=== PATIENT | female | born 1985 | race Two or more races ===

== ENCOUNTER 2024-07-22 10:41 | Inpatient (IN) ==
[2024-07-22] MEDS ORDERED: OXYTOCIN 30 UNITS/NSS 30 UNITS/500 ML BAG IV PRN (11:04)
[2024-07-22] MEDS ORDERED: LIDOCAINE 1% LOCAL 20 ML VIAL INFIL PRN (11:04)
[2024-07-22] MEDS ORDERED: CALCIUM CARBONATE 500 MG CHEWABLE TAB PO PRN (11:04)
[2024-07-22 11:40] LABS: Hematocrit (blood only) 33.4 % (37.0-47.0); Hemoglobin 11.4 g/dl (12.0-16.0); Mean Corpuscular Hemoglobin 28.9 pg (25.0-34.0); Mean Corpuscular Hgb Conc 34.1 g/dL (32.0-36.0); Mean Corpuscular Volume 84.8 fL (80.0-100.0); Platelet Count 282 K/uL (130-400); RDW Coefficient of Variation 14.4 % (11.5-14.5); RDW Standard Deviation 44.8 fL (36.4-46.3); Red Blood Count 3.94 M/uL (4.20-5.40); White Blood Count 8.15 K/ul (4.8-10.8)
[2024-07-22] MEDS: LACTATED RINGER'S 1,000 ML IV PRN (11:44)
--- NOTE | 2024-07-22 11:46 | History & Physical Report ---
Date of Service July 22, 2024 Assessment & Plan (1) 38 weeks gestation of : (2) Encounter for induction of labor: (3) GBS carrier: (4) Chronic hypertension affecting : (5) Polyhydramnios: (6) Need for MMR vaccine: (7) Gestational diabetes: Plan PCN before IOL with pit/AROM, pt agreeable VSS, Rh+, needing MMR, FHT category 1 Admission and Anticipated Discharge Date Admission Date: July 22, 2024 History of Present Illness Primary Care Provider: DO Carol Rueda is a 38 y/o female currently at 38w 1d with an DAVION 08/04/24 as determined by US who is here for induction of labor for CHTN in . This was complicated by GDM, maternal HTN, maternal tobacco smoking, and polyhydramnios. Patient is also GBS carrier. She has had regular appointments with OB. No rom, few ctx, no vb. +FM Blood type: A+ Antibody screen: NEG Hgb: 11.4 (today) Hct: 33.4 (today) WBC: 8.15 (today) Plt: 282 (today) Glucose 1 Hour (50 g Load): 160 mg/dl (05/13/24) GBS: Rubella: equivocal; need for MMR VDRL/RPR: Non-reactive Gonorrhea: Not detected Chalmydia: Not detected HIV: Non-reactive HbSAg: Non-reactive Allergies Allergy/AdvReac Type Severity Reaction Status Date / Time Sulfa (Sulfonamide Allergy Intermediate Swollen Verified 07/21/24 11:14 Antibiotics) eyes from eye drop Home Medications Medication Instructions Recorded Confirmed Type albuterol sulfate 90 mcg/actuation 2 puff inhalation Q4H PRN 08/23/19 07/21/24 History aerosol inhaler (ProAir HFA) Shortness Of Breath Or Wheezing acetaminophen 500 mg tablet 1,000 mg PO Q8H PRN Pain 03/05/20 07/21/24 History (Tylenol Extra Strength) sumatriptan succinate 100 mg tablet 100 mg PO DIRECTED PRN Migraine 01/10/21 07/21/24 History Headache omeprazole 40 mg capsule,delayed 40 mg PO QAM 06/25/23 07/21/24 History release labetalol PO 12/10/23 07/21/24 History buspirone 10 mg tablet 10 mg PO DAILY 02/11/24 07/21/24 History escitalopram oxalate 10 mg tablet 10 mg PO DAILY 02/11/24 07/21/24 History trazodone 50 mg tablet 50 mg PO DAILY PRN 02/11/24 07/21/24 History acetone (urine) test (Ketone Urine #50 ea 07/01/24 07/21/24 Rx Test strips) blood sugar diagnostic (OneTouch #150 ea 07/01/24 07/21/24 Rx Verio test strips) blood-glucose meter (OneTouch #1 ea 07/01/24 07/21/24 Rx Verio Reflect Meter) lancets 33 gauge (OneTouch Delica #150 ea 07/01/24 07/21/24 Rx Plus Lancet) Past Med/Surg History Problem List Encounter for induction of labor 38 weeks gestation of Gestational diabetes Polyhydramnios GBS carrier Need for MMR vaccine Seizure disorder Tobacco smoking affecting Chronic hypertension affecting Elderly multigravida Medical History Varicella vaccination History of chicken pox Migraine Seizures Asthma Surgical History S/P tonsillectomy Family History Grandmother (Paternal) Ovarian cancer Grandfather (Paternal) Colorectal cancer Denies family history of Breast cancer Social History Smoking Status: Former smoker Tobacco Type: Cigarettes Second Hand Exposure: No; Do You Dip or Chew Tobacco: No; Hx Alcohol Use: No Hx Substance Use: No Preferred Language: Uzbek Communication Ability: Effective 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 Beliefs That Will Affect Care: None marital status: Single marital status details: lv Ty(35) Current Living Situation: Family and Significant Other Current Living Situation Comment: living with boyfriend and their three children current occupational status: employed current occupation: [employer] at [employer] Other Information That Helps Us Care for You: No Feels Safe at Home: Yes Safety Concerns: Afraid for Self, Afraid for Child/Children and Afraid for Others in Home Assistive Devices: None Review of Systems 2 Constitutional: as per Subjective / HPI Physical Exam 2 Physical Exam: General: Alert and oriented. No acute distress CV: Regular rate and rhythm. No murmurs. Respiratory: CTA bilaterally. No rhonchi, wheezes, or crackles. No increased work of breathing. Abdomen: Gravid: Soft, nontender upon palpation Pelvic: Dilated 2 cm; Effacement 50%; Station -[address] Eason Lower extremities: NO LE edema. No deep calf pain. Results & Data Results & Data Vital Signs (Past 12 Hours) Vital Signs Temp Pulse Pulse Resp BP BP Pulse Ox 07/22/24 11:11 37.0 C 66 16 129/81 98 07/22/24 11:10 66 129/81 O2 Del Method 07/22/24 11:11 Room Air 07/22/24 11:10 Laboratory Results 07/22/24 11:12 07/22/24 11:12 Supervising Physician Co-Signing Physician Notes Resident Physician Supervision Note: I was present with Dr. Dover during the history and exam. I discussed the case with the resident and agree with the findings and plan as documented in the note. Any exceptions or clarifications are listed here: 38yo t 38+wks emmy presents to LD for planned induction for CHTN. also complicated by GDM, AMA, Poly, smoker. She notes some ctx overnight. No rom, no vb. +FM. Abd soft gravid nt, efw 7-8# NST reactive. fhts categ 1. SVE yest as noted. Admit, labs, iv, start pit and pcn and arom when appropriate. bsgs in labor. bp as noted. Documented By: Maris Eason MD, FACOG Resident Activity Tracking Resident Involvement: Resident Care Provided Care Provided: OB Delivery
[2024-07-22] MEDS: OXYTOCIN 30 UNITS/NSS 30 UNITS/500 ML BAG IV PRN (11:51)
[2024-07-22 11:54] LABS: Albumin Globulin Ratio 1.3 (0.9-2); Albumin Level 3.4 gm/dl (3.4-5.0); Bilirubin Direct 0.1 mg/dl (0-0.2); Bilirubin,Total 0.5 mg/dl (0.2-1.0); Calcium 8.4 mg/dl (8.6-10.3); Est GFR (African American) 144.3 ml/min; Est GFR (Non-African American) 124.5 ml/min; Globulin 2.7 gm/dl (2.5-4.0); Potassium 3.9 mmol/L (3.5-5.1); Total Protein 6.1 gm/dl (6.0-8.3)
[2024-07-22] MEDS: PENICILLIN GK 6 MU in DEXTROSE 5% 250 ML IV STA (12:15)
[2024-07-22] MEDS: PENICILLIN GK 3 MU in DEXTROSE 5% 100 ML IV PRN (16:43)
[2024-07-22] MEDS ORDERED: fentaNYL citrate PF 100 MCG/2 ML VIAL EPI PRN (18:12)
[2024-07-22] MEDS ORDERED: fentANYL 2 MCG/ML BUPIVacaine 0.125%-NSS 100ML BAG EPI PRN (18:12)
[2024-07-22] MEDS ORDERED: NALBUPHINE HCL 5 MG in SYRINGE 0 ML IV PRN (18:12)
[2024-07-22] MEDS ORDERED: NALOXONE HCL 1 MG in SODIUM CHLORIDE 0.9% 1,000 ML IV PRN (18:12)
[2024-07-22] MEDS ORDERED: NALOXONE HCL 0.4 MG/1 ML VIAL/CARP IV PRN (18:12)
[2024-07-22] MEDS ORDERED: LIDOCAINE 2% MPF LOCAL 5 ML VIAL EPI PRN (18:12)
[2024-07-22] MEDS ORDERED: ePHEDrine sulfate 50 MG/ML AMP IV PRN (18:12)
[2024-07-22] MEDS ORDERED: BUPIVACAINE 0.25% PF 30 ML VIAL EPI PRN (18:12)
[2024-07-22] MEDS ORDERED: diphenhydrAMINE 50 MG/ML VIAL IV PRN (18:12)
[2024-07-22] MEDS ORDERED: ROPIVACAINE 0.5% PF 5 MG/ML 20 ML VIAL EPI PRN (18:12)
[2024-07-22] MEDS ORDERED: SODIUM CHLORIDE 0.9% PF INJ 10 ML VIAL EPI PRN (18:12)
--- NOTE | 2024-07-22 18:12 | Anesthesiology Consultation ---
Date of Service July 22, 2024 Assessment & Plan Chart Review Chart Review: Patient NOT seen in Pre Admission Testing and Acceptable Risk for Labor Epidural Consults Requested none History Height/Weight Height: 5 ft 3 in Weight: 91.444 kg Allergies Allergy/AdvReac Type Severity Reaction Status Date / Time Sulfa (Sulfonamide Allergy Intermediate Swollen Verified 07/21/24 11:14 Antibiotics) eyes from eye drop Medications Home Medications Medication Instructions Recorded Confirmed Last Taken albuterol sulfate 90 mcg/actuation 2 puff inhalation Q4H PRN 08/23/19 07/22/24 Unknown aerosol inhaler (ProAir HFA) Shortness Of Breath Or Wheezing acetaminophen 500 mg tablet 1,000 mg PO Q8H PRN Pain 03/05/20 07/22/24 03/05/20 19:00 (Tylenol Extra Strength) 1,000 mg sumatriptan succinate 100 mg tablet 100 mg PO DIRECTED PRN Migraine 01/10/21 07/22/24 Unknown Headache omeprazole 40 mg capsule,delayed 40 mg PO QAM PRN Anxiety 06/25/23 07/22/24 06/25/23 release labetalol 300 mg PO 2XD 12/10/23 07/22/24 07/22/24 buspirone 10 mg tablet 10 mg PO DAILY 02/11/24 07/22/24 07/21/24 escitalopram oxalate 10 mg tablet 10 mg PO DAILY 02/11/24 07/22/24 07/22/24 trazodone 50 mg tablet 50 mg PO DAILY PRN sleep 02/11/24 07/22/24 07/21/24 acetone (urine) test (Ketone Urine #50 ea 07/01/24 07/21/24 Unknown Test strips) blood sugar diagnostic (OneTouch #150 ea 07/01/24 07/21/24 Unknown Verio test strips) blood-glucose meter (OneTouch #1 ea 07/01/24 07/21/24 Unknown Verio Reflect Meter) lancets 33 gauge (OneTouch Delica #150 ea 07/01/24 07/21/24 Unknown Plus Lancet) Active Medications Generic Name Dose Route Start Last Admin Trade Name Freq PRN Reason Stop Dose Admin Oxytocin 30 units in 500 mls @ 7 mls/hr 07/22/24 11:04 07/22/24 14:00 Pitocin 30 Units/Nss IV 07/24/24 11:03 0.42 units/hr .Q24H PRN 7 mls/hr Labor Induction/Augmentation Titration Protocol 0.42 UNITS/HR Lactated Ringer's 1,000 mls @ 125 mls/hr 07/22/24 11:04 07/22/24 11:44 Lr IV 07/24/24 11:03 125 mls/hr .Q8H PRN Administration L&D Protocol Protocol Penicillin G Potassium 3 mu/ 106 mls @ 100 mls/hr 07/22/24 14:04 07/22/24 16:43 Dextrose IV 08/01/24 14:03 100 mls/hr Q4H PRN Administration GBS(+) Until Delivery Past Medical History Medical History Varicella vaccination History of chicken pox Migraine Seizures Asthma Past Family History Family History Grandmother (Paternal) Ovarian cancer Grandfather (Paternal) Colorectal cancer Denies family history of Breast cancer Past Surgical History Surgical History S/P tonsillectomy Social History Smoking Status: Former smoker Do You Dip or Chew Tobacco: No Hx Alcohol Use: No Hx Substance Use: No substance use type: does not use Physical Exam Vital Signs Last Vital Signs Temp 98.8 F 07/22/24 14:01 Pulse 55 L 07/22/24 17:55 Resp 16 07/22/24 11:14 BP 162/90 H 07/22/24 17:55 Pulse Ox 98 07/22/24 11:11 O2 Del Method Room Air 07/22/24 11:11 Testing Laboratory Results 07/22/24 11:12 07/22/24 11:12 Blood Type A Positive 07/22/24 11:12 Antibody Screen NEGATIVE 07/22/24 11:12 07/22/24 11:57 POC Glucose 122 H
[2024-07-22] MEDS: fentANYL 2 MCG/ML BUPIVacaine 0.125%-NSS 100ML BAG ONE (18:35)
[2024-07-22] MEDS: BUPIVACAINE 0.25% PF 30 ML VIAL ONE (18:35)
[2024-07-22] MEDS: LIDOCAINE 2%/EPINEPHRINE 1:200,000 20 ML PF ONE (18:35)
[2024-07-22] MEDS: fentaNYL citrate PF 100 MCG/2 ML VIAL EPI STA (18:54)
[2024-07-22] MEDS: LIDOCAINE 2%/EPINEPHRINE 1:200,000 20 ML PF EPI STA (18:54)
[2024-07-22] MEDS: SODIUM CHLORIDE 0.9% PF INJ 10 ML VIAL ONE (18:54)
[2024-07-22] MEDS: SODIUM CHLORIDE 0.9% PF INJ 10 ML VIAL EPI STA (18:54)
[2024-07-22] MEDS: BUPIVACAINE 0.25% PF 30 ML VIAL EPI STA (18:54)
[2024-07-22] MEDS: ePHEDrine sulfate 50 MG/ML AMP ONE (18:54)
--- NOTE | 2024-07-22 19:01 | Labor Progress Brief Note ---
Date of Service July 22, 2024 Subjective comfortable Assessment & Plan (1) 38 weeks gestation of : (2) Encounter for induction of labor: (3) GBS carrier: Plan will see how arom helps pattern, keep increasing pit to help labor pattern. fhts categ 1 Admission and Anticipated Discharge Date Admission Date: July 22, 2024 Physical Exam Constitutional: WD/WN, vitals as above Genitourinary: Manual OB Exam: + cervical dilation 3 cm, + cervical effacement 50%, + station -2 (anterior) and + amniotic fluid (AROM) clear OB Exam Monitor Tracing: + external FHT monitor used, + external uterine monitor used (q3), + category I and + normal FHT variability Results & Data Vital Signs (Past 12 Hours) Vital Signs Temp Pulse Pulse Resp BP BP Pulse Ox 07/22/24 18:56 51 L 100 07/22/24 18:54 59 L 144/88 H 07/22/24 18:51 71 100 07/22/24 18:50 16 07/22/24 18:50 16 07/22/24 18:49 70 142/88 H 07/22/24 18:46 76 98 07/22/24 18:45 16 07/22/24 18:45 16 07/22/24 18:44 59 L 144/82 H 07/22/24 18:41 66 99 07/22/24 18:40 59 L 147/92 H 07/22/24 18:37 60 143/86 H 07/22/24 18:36 57 L 99 07/22/24 18:32 54 L 160/97 H 07/22/24 18:31 61 100 07/22/24 18:27 62 185/86 H 07/22/24 18:26 68 100 07/22/24 18:22 07/22/24 18:21 60 100 07/22/24 18:00 16 07/22/24 18:00 98.6 F 16 07/22/24 17:55 55 L 162/90 H 07/22/24 16:57 53 L 156/91 H 07/22/24 14:54 56 L 137/93 07/22/24 14:01 98.8 F 07/22/24 13:57 62 157/95 H 07/22/24 13:26 57 L 156/89 H 07/22/24 12:55 67 129/86 07/22/24 11:53 71 121/79 07/22/24 11:14 98.6 F 66 16 128/81 07/22/24 11:11 98.6 F 66 16 129/81 98 07/22/24 11:10 66 129/81 Pulse Ox O2 Del Method O2 Del Method 07/22/24 18:56 07/22/24 18:54 07/22/24 18:51 07/22/24 18:50 07/22/24 18:50 07/22/24 18:49 07/22/24 18:46 07/22/24 18:45 07/22/24 18:45 07/22/24 18:44 07/22/24 18:41 07/22/24 18:40 07/22/24 18:37 07/22/24 18:36 07/22/24 18:32 07/22/24 18:31 07/22/24 18:27 07/22/24 18:26 07/22/24 18:22 100 Room Air 07/22/24 18:21 07/22/24 18:00 07/22/24 18:00 07/22/24 17:55 07/22/24 16:57 07/22/24 14:54 07/22/24 14:01 07/22/24 13:57 07/22/24 13:26 07/22/24 12:55 07/22/24 11:53 07/22/24 11:14 07/22/24 11:11 Room Air 07/22/24 11:10 Coding Level of Care Code None Diagnoses 38 weeks gestation of Z3A.38 Encounter for induction of labor Z34.90 GBS carrier Z22.330
--- NOTE | 2024-07-23 01:40 | Delivery Summary ---
Vaginal Delivery Summary Date of Service July 23, 2024 Vaginal Delivery Summary and 2nd Degree LAC The patient dilated to complete and pushed to deliver a viable female infant Apgars 8 and 8 via over 2nd degree perineal laceration. Mild shoulder dystocia encountered relieved by Adrian maneuvers, gentle downward traction and effective maternal expulsive efforts. Remaining shoulder and body delivered with ease. M/N bulb suctioned. Infant was vigorous and crying at . Cord clamped at 30 seconds of life and to maternal abdomen where the cord was then doubly clamped and cut. Placenta delivered spontaneously and intact, three-vessel cord. Hemostasis achieved with dilute pitocin and uterine massage and drainage of the bladder for approximately 150 cc under sterile conditions. Laceration repaired in routine fashion with 3-0 vicryl. Cervix and sulci intact. QBL 75 cc. Mother and baby stable in recovery. MNP Vaginal Delivery Charge Delivery Type Details: and 2nd Degree LAC
[2024-07-23] MEDS ORDERED: oxyCODONE/ACETAMINOPHEN 5mg/325mg TAB PO PRN (03:03)
[2024-07-23] MEDS ORDERED: HYDROCORTISONE ACETATE 25 MG SUPP PR PRN (03:03)
[2024-07-23] MEDS ORDERED: OXYTOCIN 30 UNITS/NSS 30 UNITS/500 ML BAG IV PRN (03:03)
[2024-07-23] MEDS ORDERED: ALBUTEROL HFA 8 GM INHALER INH PRN (03:03)
[2024-07-23] MEDS ORDERED: ACETAMINOPHEN 325 MG TAB PO PRN (03:03)
[2024-07-23] MEDS ORDERED: MEASLES, MUMPS & RUBELLA VIRUS VACCINE (MMR) 0.5ML VIAL SQ ONE (03:03)
[2024-07-23] MEDS: IBUPROFEN 600 MG TAB PO PRN (03:26)
[2024-07-23] MEDS: BENZOCAINE 20% SPRY 85 APPLN/85 GM CAN EXT PRN (03:26)
[2024-07-23] MEDS: OXYTOCIN 20 UNITS/LR 1,002 ML IV SCH (03:26)
[2024-07-23] MEDS: DIPHTHER/TETAN/PERTUS Vaccine (Tdap, Adol/Adult) 0.5mL IM ONE (03:26)
[2024-07-23] MEDS: LABETALOL HCL 300 MG TAB PO STA (04:09)
--- NOTE | 2024-07-23 06:29 | Obstetrical Progress Note ---
Date of Service July 24, 2024 Assessment & Plan (1) GBS carrier: (2) Tobacco smoking affecting : (3) Chronic hypertension affecting : (4) Polyhydramnios: (5) Elderly multigravida: (6) Need for MMR vaccine: (7) Gestational diabetes: Plan PPD1: Stable, continue routine care, continue OOB and ambulation, diet as tolerated Rh+, gbs carrier, need MMR Admission and Anticipated Discharge Date Admission Date: July 22, 2024 Naomi Medina is a 38yo who is PPD#1 following induced vaginal delivery at term. She reports her pain is well controlled w analgesics She is eating, drinking, ambulating, and urinating Having appropriate lochia Currently breast feeding. Review of Systems Constitutional: no fever, no chills and no sweats Respiratory: no dyspnea Cardiovascular: no chest pain, no palpitations and no calf pain Genitourinary: no dysuria Neurologic: no headache(s) Physical Exam Physical Exam: General: Alert, oriented. No acute distress. Cardiac: Regular rate and rhythm, no murmurs, rubs, or gallops. Respiratory: Clear to auscultation bilaterally, no wheezes/rales/rhonchi. No increased work of breathing. Symmetrical chest rise. No respiratory distress. Abdomen: Soft, nontender, nondistended. Bowel sounds present. Uterus: Uterine fundus firm, palpable at the level of the umbilicus. Lower extremities: No lower extremity edema or swelling. No deep calf pain. Results & Data Vital Signs (Past 12 Hours) Vital Signs Temp Pulse Pulse Resp BP BP Pulse Ox 07/23/24 04:48 36.5 C 70 16 146/84 H 07/23/24 03:55 76 130/76 07/23/24 03:40 83 141/87 H 07/23/24 03:31 71 159/95 H 07/23/24 03:25 85 160/100 H 07/23/24 03:12 67 152/93 H 07/23/24 03:10 80 148/96 H 07/23/24 02:55 73 144/84 H 07/23/24 02:40 71 148/86 H 07/23/24 02:25 67 147/88 H 07/23/24 02:10 72 144/84 H 07/23/24 01:55 79 152/88 H 07/23/24 01:41 82 157/87 H 07/23/24 01:36 74 99 07/23/24 01:31 75 98 07/23/24 01:26 78 97 07/23/24 01:21 84 98 07/23/24 01:16 88 99 07/23/24 01:11 81 100 07/23/24 01:10 77 137/78 07/23/24 01:06 72 98 07/23/24 01:01 79 98 07/23/24 00:57 70 139/68 07/23/24 00:56 73 98 07/23/24 00:51 76 99 07/23/24 00:46 76 98 07/23/24 00:41 37.2 C 73 18 99 07/23/24 00:40 74 126/73 07/23/24 00:36 72 98 07/23/24 00:31 72 99 07/23/24 00:26 80 99 07/23/24 00:25 70 123/66 07/23/24 00:21 73 99 07/23/24 00:16 76 100 07/23/24 00:11 88 160/77 H 98 07/23/24 00:06 70 99 07/23/24 00:01 70 98 07/22/24 23:57 59 L 160/84 H 07/22/24 23:56 59 L 96 07/22/24 23:51 76 99 07/22/24 23:46 72 96 07/22/24 23:41 70 96 07/22/24 23:40 66 136/77 07/22/24 23:36 75 96 07/22/24 23:31 74 96 07/22/24 23:26 71 97 07/22/24 23:25 68 140/79 07/22/24 23:21 72 97 07/22/24 23:16 74 99 07/22/24 23:11 99 07/22/24 23:11 69 07/22/24 23:11 67 134/76 07/22/24 23:06 71 100 07/22/24 23:01 76 98 07/22/24 22:56 61 99 07/22/24 22:55 61 144/81 H 07/22/24 22:51 63 99 07/22/24 22:46 64 99 07/22/24 22:41 72 99 07/22/24 22:40 76 141/83 H 07/22/24 22:36 72 99 07/22/24 22:31 72 99 07/22/24 22:26 62 99 07/22/24 22:25 66 137/79 07/22/24 22:21 71 99 07/22/24 22:16 72 100 07/22/24 22:11 69 99 07/22/24 22:10 65 137/86 07/22/24 22:06 71 100 07/22/24 22:01 70 100 07/22/24 21:56 71 100 07/22/24 21:55 68 150/84 H 07/22/24 21:51 68 100 07/22/24 21:46 72 100 07/22/24 21:41 63 100 07/22/24 21:40 66 154/86 H 07/22/24 21:36 59 L 100 07/22/24 21:31 64 99 07/22/24 21:26 78 99 07/22/24 21:25 63 130/67 07/22/24 21:21 71 100 07/22/24 21:16 66 100 07/22/24 21:11 80 132/61 100 07/22/24 21:06 69 100 07/22/24 21:01 70 100 07/22/24 20:56 100 07/22/24 20:56 69 07/22/24 20:56 66 129/71 07/22/24 20:51 74 100 07/22/24 20:50 18 07/22/24 20:50 37.2 C 18 07/22/24 20:46 68 100 07/22/24 20:41 72 100 07/22/24 20:40 66 126/67 07/22/24 20:36 72 100 07/22/24 20:31 68 100 07/22/24 20:26 65 129/65 100 07/22/24 20:21 68 99 07/22/24 20:16 62 99 07/22/24 20:11 64 98 07/22/24 20:10 75 133/79 07/22/24 20:06 61 99 07/22/24 20:01 62 99 07/22/24 19:56 75 100 07/22/24 19:55 56 L 147/90 H 07/22/24 19:51 62 100 07/22/24 19:46 60 100 07/22/24 19:41 59 L 100 07/22/24 19:40 62 141/90 H 07/22/24 19:39 66 91 07/22/24 19:36 59 L 100 07/22/24 19:31 63 100 07/22/24 19:26 100 07/22/24 19:26 66 07/22/24 19:26 56 L 152/83 H 07/22/24 19:21 59 L 99 07/22/24 19:16 62 100 07/22/24 19:11 59 L 99 07/22/24 19:09 37.0 C 64 18 148/90 H 91 07/22/24 19:06 62 100 07/22/24 19:05 59 L 150/80 H 07/22/24 19:01 100 07/22/24 19:01 58 L 07/22/24 19:01 58 L 149/93 H 07/22/24 18:56 51 L 100 07/22/24 18:54 59 L 144/88 H 07/22/24 18:51 71 100 07/22/24 18:50 16 07/22/24 18:50 16 07/22/24 18:49 70 142/88 H 07/22/24 18:46 76 98 07/22/24 18:45 16 07/22/24 18:45 16 07/22/24 18:44 59 L 144/82 H 07/22/24 18:41 66 99 07/22/24 18:40 59 L 147/92 H 07/22/24 18:37 60 143/86 H 07/22/24 18:36 57 L 99 07/22/24 18:32 54 L 160/97 H 07/22/24 18:31 61 100 07/22/24 18:27 62 185/86 H
[2024-07-23] MEDS: LABETALOL HCL 100 MG TAB PO SCH (08:28)
[2024-07-23] MEDS: PRENATAL VITAMIN 1 TAB PO SCH (08:28)
[2024-07-23] MEDS: DOCUSATE SODIUM 100 MG CAP PO SCH (08:28)
[2024-07-23] MEDS: ESCITALOPRAM OXALATE 10 MG TAB PO SCH (08:28)
[2024-07-23] MEDS ORDERED: busPIRone 5 MG TAB PO SCH (09:00)
--- NOTE | 2024-07-23 14:18 | Anesthesia Procedure Note ---
Date of Service July 23, 2024 Anesthesia Post Epidural Note Vital Signs Vital Signs: Temp Pulse Resp BP Pulse Ox O2 Del Method 36.3 C L 71 16 130/73 97 Room Air 07/23/24 10:39 07/23/24 10:39 07/23/24 10:39 07/23/24 10:39 07/23/24 10:39 07/23/24 10:39 Pain Intensity Lower Abdomen: Pain Intensity: 0 Perineal: Pain Intensity: 1 Notes Mental Status: alert / awake / arousable Nausea / Vomiting: adequately controlled Pain: adequately controlled Airway Patency, RR, SpO2: stable & adequate BP & HR: stable & adequate Hydration State: stable & adequate Neuraxial Anesthesia: was administered and sensory block is resolving Anesthetic Complications: no major complications apparent and Pt Satisfied with anesthetic care Epidural: Removed without complications and With tip intact
[2024-07-24 07:50] VITALS: BP 148/85; PULSE 69; RESP 14; TEMP 98.2; O2SAT 98
--- NOTE | 2024-07-24 08:00 | Obstetrical Progress Note ---
Date of Service July 24, 2024 day #2 patient is doing well minimal bleeding no excessive pain and no extremity pain Assessment & Plan (1) Encounter for induction of labor: day #2 meets discharge criteria discharge home Physical Exam Constitutional WD/WN, vitals as above well developed and well nourished Respiratory normal respiratory effort, lungs clear to auscultation normal respiratory effort Cardiovascular RRR, no murmur, no edema Gastrointestinal (Abdomen) normal bowel sounds, soft, nontender, no hepatosplenomegaly Results & Data Vital Signs (Past 12 Hours) Vital Signs Temp Pulse Resp BP Pulse Ox O2 Del Method 07/24/24 07:14 98.2 F 69 14 148/85 H 98 Room Air 07/23/24 23:35 Room Air 07/23/24 22:54 98.1 F 65 18 127/73 97 Room Air
[2024-07-24] MEDS ORDERED: bisacodyL 5 MG TABEC PO SCH (20:00)
== END 2024-07-24 11:45 | disposition home or self-care (01) | DRG 807 ==
LOC: 4S1 10:41 → 4E2 07-23 04:40